=== PATIENT | male | born 1960 | race Hispanic/Latino ===

== ENCOUNTER 2025-08-27 12:57 | Inpatient (IN) | payer MEDICARE ==
[~2025-08-27] VITALS: Ht 167.6 cm; Wt 79.1 kg
[2025-08-27 13:28] VITALS: TEMP 97.9
[2025-08-27 13:53] LABS: BASOPHILS % 0.1 % (0.0-1.0); EOSINOPHILS % 0.0 % (0.0-6.0); LYMPHOCYTES % 7.3 % (18.0-39.1); MONOCYTES % 6.3 % (4.4-11.3); NEUTROPHILS % 85.6 % (38.7-80.0); RED CELL DISTRIBUTION WIDTH 12.9 % (11.7-14.4)
[2025-08-27] MEDS: SODIUM CHLORIDE 0.9% 1000ML 1,000 ML IV ONE (14:16)
[2025-08-27] MEDS: ONDANSETRON HCL INJ 2MG/ML 2ML 2 MG/ML VIAL IV STA (14:17)
[2025-08-27 14:20] LABS: EST GLOMERULAR FILTRATION RATE 100.0 ML/MIN (>=60)
[2025-08-27] MEDS: DICYCLOMINE HCL 20 MG/2 ML VIAL IM ONE (14:20)
[2025-08-27] MEDS ORDERED: IOPAMIDOL 370 MG/ML 100 ML INFUS..BTL INJ ONE (15:02)
[2025-08-27] MEDS: INSULIN REGULAR, HUMAN 100 UNIT/1 ML IV ONE (16:20)
[2025-08-27 16:44] LABS: ETHANOL < 10.0 mg/dL (0.0-10.0)
[2025-08-27 17:20] LABS: LEUKOCYTE ESTERASE ,URINE NEGATIVE (NEGATIVE); PROTEIN,URINE DIPSTICK TRACE (NEGATIVE); URINE UROBILINOGEN 0.2 mg/dL (0.2 - 1)
[2025-08-27 17:32] LABS: EPITHELIAL CELLS,URINE FEW /LPF
[2025-08-27] MEDS ORDERED: ACETAMINOPHEN 325 MG TAB PO PRN (18:00)
[2025-08-27] MEDS ORDERED: BENZONATATE 100 MG CAP PO PRN (18:00)
[2025-08-27] MEDS ORDERED: SODIUM CHLORIDE 0.9% 1000ML 1,000 ML IV SCH (18:00)
[2025-08-27] MEDS ORDERED: DEXTROSE 50% SYRINGE 50 ML IV PRN (18:00)
[2025-08-27] MEDS ORDERED: HYDRALAZINE HCL 20 MG/ML VIAL IV PRN (18:00)
[2025-08-27] MEDS ORDERED: POTASSIUM CHLORIDE 20 MEQ TAB CR PO PRN (18:00)
[2025-08-27] MEDS ORDERED: SIMETHICONE 80 MG CHEW PO PRN (18:00)
[2025-08-27] MEDS ORDERED: DIPHENHYDRAMINE HCL 25 MG CAP PO PRN (18:00)
[2025-08-27] MEDS ORDERED: DOCUSATE SODIUM 100 MG CAP PO PRN (18:00)
[2025-08-27] MEDS ORDERED: MELATONIN 5 MG TABLET PO PRN (18:00)
[2025-08-27] MEDS ORDERED: ONDANSETRON HCL INJ 2MG/ML 2ML 2 MG/ML VIAL IV PRN (18:00)
[2025-08-27] MEDS ORDERED: LIDOCAINE 4% PATCH TP PRN (18:00)
[2025-08-27] MEDS ORDERED: ALBUTEROL/IPRATROPIUM 3 ML NEB NEB PRN (18:00)
[2025-08-27] MEDS: SODIUM CHLORIDE 0.9% 1000ML 1,000 ML IV SCH (19:38)
[2025-08-27 20:32] VITALS: PULSE 65; RESP 21
[2025-08-27 21:00] VITALS: BP 142/84; PULSE 70; RESP 18; TEMP 97.9; O2SAT 98
[2025-08-27 21:09] VITALS: BP 149/90; PULSE 69; RESP 18; TEMP 97.9; O2SAT 100
[2025-08-27] MEDS ORDERED: METFORMIN HCL500 MG PO (22:22)
[2025-08-27] MEDS ORDERED: INSULIN GL300 UNIT/2 (22:22)
[2025-08-27] MEDS ORDERED: LOSARTAN POTAS100 MG PO (22:22)
[2025-08-27 22:23] VITALS: BP 142/84; PULSE 70; RESP 18; TEMP 97.9; O2SAT 98
[2025-08-27] MEDS: CALCIUM CARBONATE 500 MG CHEWABLE TABS PO PRN (22:57)
[2025-08-27] MEDS: CITRATE OF MAGNESIA 300ML BOTTLE PO ONE (22:58)
[2025-08-27] MEDS: DOCUSATE SODIUM 100 MG CAP PO SCH (22:58)
[2025-08-28] VITALS (10 sets, daily range): BP systolic 118–158; BP diastolic 79–94; PULSE 65–75; RESP 16–18; TEMP 97.3–98.3; O2SAT 95–100
[2025-08-28 05:27] LABS: BASOPHILS % 0.1 % (0.0-1.0); EOSINOPHILS % 0.1 % (0.0-6.0); LYMPHOCYTES % 10.4 % (18.0-39.1); MONOCYTES % 7.5 % (4.4-11.3); NEUTROPHILS % 81.3 % (38.7-80.0); RED CELL DISTRIBUTION WIDTH 13.1 % (11.7-14.4)
[2025-08-28 05:56] LABS: EST GLOMERULAR FILTRATION RATE 103.0 ML/MIN (>=60)
[2025-08-28 06:13] LABS: CHOL/HDL RATIO 7.1 (3.9-4.7); LDL CHOLESTEROL 173.0 MG/DL (60-130); PHOSPHORUS 2.7 MG/DL (2.3-4.7)
[2025-08-28] MEDS: PANTOPRAZOLE SOD 40 MG TABEC PO SCH ×2 (10:28→17:07)
[2025-08-28] MEDS ORDERED: DEXTROSE 50% SYRINGE 50 ML IV PRN (11:00)
[2025-08-28] MEDS: INSULIN LISPRO 100 UNIT/1 ML 3ML VIAL SQ SCH (11:30)
[2025-08-28] MEDS: ENOXAPARIN SOD INJ 40 MG/0.4 ML SYR SC SCH (17:07)
[2025-08-28] MEDS: SUCRALFATE 1 GM/10 ML SUSP NG SCH (17:08)
[2025-08-29] VITALS (7 sets, daily range): BP systolic 113–131; BP diastolic 72–89; PULSE 58–79; RESP 18–19; TEMP 98–98.3; O2SAT 96–99
[2025-08-29 06:52] LABS: BASOPHILS % 0.1 % (0.0-1.0); EOSINOPHILS % 0.8 % (0.0-6.0); LYMPHOCYTES % 20.3 % (18.0-39.1); MONOCYTES % 10.7 % (4.4-11.3); NEUTROPHILS % 67.2 % (38.7-80.0); RED CELL DISTRIBUTION WIDTH 13.3 % (11.7-14.4)
[2025-08-29 07:19] LABS: EST GLOMERULAR FILTRATION RATE 109.0 ML/MIN (>=60)
[2025-08-29] MEDS: ONDANSETRON HCL INJ 2MG/ML 2ML 2 MG/ML VIAL IV PRN (13:36)
== END 2025-08-29 16:48 | disposition home or self-care (01) | DRG 178 ==
LOC: ER 13:08 → ERHOLD 18:29 → MED/SURG2 20:49 → OBSVTOIN 08-28 15:43
PROVIDERS: ADMIT Internal Medicine; ATTEND Internal Medicine
PROC: 4A043R1 Measurement of Venous Saturation, Peripheral, Percutaneous Approach (ICD-10-PCS; principal; 2025-08-27)
DX: U07.1 COVID-19 (principal); E87.1 Hypo-osmolality and hyponatremia; E87.20 Acidosis, unspecified; K59.00 Constipation, unspecified; R11.2 Nausea with vomiting, unspecified; E11.9 Type 2 diabetes mellitus without complications; Z79.4 Long term (current) use of insulin; Z79.84 Long term (current) use of oral hypoglycemic drugs; K76.0 Fatty (change of) liver, not elsewhere classified; K80.20 Calculus of gallbladder without cholecystitis without obstruction; R74.01 Elevation of levels of liver transaminase levels; D72.829 Elevated white blood cell count, unspecified; T38.0X5A Adverse effect of glucocorticoids and synthetic analogues, initial encounter; Y92.009 Unspecified place in unspecified non-institutional (private) residence as the place of occurrence of the external cause; Z71.81 Spiritual or religious counseling; Z79.899 Other long term (current) drug therapy
CPT/HCPCS: 36415; 71045; 74177; 80053; 80061; 80320; 80329; 81001; 82948; 83036; 83605; 83690; 83735; 84100; 84443; 85025; 87040; 94799; 96372; 99284; G0378; J1650; J2405; J2470; J2543; J7030; Q9967